=== PATIENT | male | born 1965 | race Caucasian/White ===

== ENCOUNTER 2018-06-14 12:21 | Emergency (ER) | payer MEDICAID, OTHER ==
[~2018-06-14] VITALS: Ht 185.4 cm; Wt 127.0 kg
[~2018-06-14 12:21] MED LIST: AZITTAB11 PO; METH4PAK PO
[2018-06-14 12:31] VITALS: BP 111/87
== END 2018-06-14 16:43 | disposition home or self-care (01) ==
LOC: ER 12:21
DX: S81.012D Laceration without foreign body, left knee, subsequent encounter (principal); F17.210 Nicotine dependence, cigarettes, uncomplicated; X58.XXXD Exposure to other specified factors, subsequent encounter

== ENCOUNTER 2018-06-18 13:59 | Emergency (ER) | payer OTHER ==
[~2018-06-18] VITALS: Ht 185.4 cm; Wt 127.0 kg
[2018-06-18 15:45] VITALS: BP 143/78
== END 2018-06-18 15:48 | disposition home or self-care (01) ==
LOC: ER 14:02
DX: S81.012D Laceration without foreign body, left knee, subsequent encounter (principal); F17.210 Nicotine dependence, cigarettes, uncomplicated; Z79.899 Other long term (current) drug therapy; X58.XXXD Exposure to other specified factors, subsequent encounter